=== PATIENT | male | born 1980 | race Caucasian/White ===

== ENCOUNTER 2017-01-27 05:37 | Inpatient (IN) | payer OTHER ==
[2017-01-27] VITALS (25 sets, daily range): BP systolic 70–115; BP diastolic 35–78; BMI 25.2
[~2017-01-27 05:37] MED LIST: BACTRIM DS TABL1 TAB PO; FLOMAX0.4 MG PO; ULTRAM50 MG PO; ZITHROMAX500 MG PO
[2017-01-27 06:33] LABS: BASOPHILS 0 % (0-2); EOSINOPHILS 0.3 % (0-7); HEMATOCRIT 36.1 % (42.0-54.0); LYMPHOCYTES 3.7 % (15-50); MCH 30.8 pg (26.0-34.0); MCHC 33.2 g/dL (31.0-37.0); MCV 92.8 fL (80.0-100.0); MEAN PLATELET VOLUME 9.9 fL (7.4-10.4); MONOCYTES 0 % (2-11); RBC 3.89 10x6/uL (4.20-6.10); RDW 13.2 % (11.5-14.5); WBC 3.5 10x3/uL (4.8-10.8)
[2017-01-27 06:39] LABS: PLATELET COUNT 116 10x3/uL (130-400)
[2017-01-27 06:51] LABS: ALBUMIN 3.1 g/dL (3.4-5.0); ANION GAP 12.1 mmol/L (8-16); BILIRUBIN - TOTAL 1.6 mg/dL (0.2-1.3); CALCIUM 8.7 mg/dL (8.5-10.1); CARBON DIOXIDE 23.5 mmol/L (21.0-32.0); CREATININE - SERUM 1.5 mg/dL (0.6-1.3); POTASSIUM - SERUM 3.6 mmol/L (3.5-5.1); PROTEIN - SERUM 5.9 g/dL (6.4-8.2)
[2017-01-27 07:22] LABS: APPEARANCE CLEAR (CLEAR); BACTERIA FEW /hpf (NONE SEEN); BILIRUBIN NEGATIVE (NEGATIVE); COLOR YELLOW (YELLOW); EPITHELIAL CELLS 0-5 /hpf (0-5); GLUCOSE NEGATIVE (NEGATIVE); KETONE NEGATIVE (NEGATIVE); MUCUS <1+ /lpf (NONE SEEN); NITRITE NEGATIVE (NEGATIVE); PROTEIN TRACE mg/dL (NEGATIVE); RED CELLS - URINE OCC /hpf (0-5); SPECIFIC GRAVITY 1.015 (1.005-1.020); UROBILINOGEN NORMAL (NORMAL); WHITE CELLS - URINE OCC /hpf (0-5)
[2017-01-27 07:23] LABS: GRANULAR CAST RARE /lpf (NONE SEEN)
[2017-01-27 10:03] LABS: UDS - AMPHET POSITIVE QUAL (NEGATIVE); UDS - BARB NEGATIVE QUAL (NEGATIVE); UDS - BENZO NEGATIVE QUAL (NEGATIVE); UDS - COCAINE NEGATIVE QUAL (NEGATIVE); UDS - OPIATE NEGATIVE QUAL (NEGATIVE); UDS - PCP NEGATIVE QUAL (NEGATIVE); UDS - THC NEGATIVE QUAL (NEGATIVE)
[2017-01-27 11:43] LABS: BASOPHILS 0.1 % (0-2); EOSINOPHILS 0.2 % (0-7); HEMATOCRIT 34.2 % (42.0-54.0); HEMOGLOBIN 11.5 g/dL (13.5-17.5); IMMATURE GRANULOCYTES 1.2 % (0-5); LYMPHOCYTES 2.6 % (15-50); MCH 31.3 pg (26.0-34.0); MCHC 33.6 g/dL (31.0-37.0); MCV 93.2 fL (80.0-100.0); MEAN PLATELET VOLUME 9.6 fL (7.4-10.4); MONOCYTES 3.4 % (2-11); NEUTROPHILS 92.5 % (40-80); PLATELET COUNT 95 10x3/uL (130-400); RBC 3.67 10x6/uL (4.20-6.10); RDW 13.4 % (11.5-14.5)
[2017-01-27 12:04] LABS: WBC 9.9 10x3/uL (4.8-10.8)
[2017-01-27 12:05] LABS: CKMB 0.4 U/L (0.0-3.6); CREATINE KINASE 80 UL (21-232); TROPONIN-I < 0.017 ng/mL (0.000-0.060)
--- NOTE | 2017-01-27 17:35 | NUR ---
DECREASED LEVOPHED TO 3MCG/MIN. PATIENT IS SLEEPING WITH NO DISTRESS NOTED. CALL LIGHT WITHIN REACH, BED IN LOW POSITION.
--- NOTE | 2017-01-27 17:45 | NUR ---
PATIENT DENIES ANY NEEDS AT THIS TIME. CM IS SR-ST. CALL LIGHT WIHTIN REACH, BED IN LOW POSITION.
--- NOTE | 2017-01-27 19:15 | NUR ---
ASSESSMENT COMPLETE. S1S2. SINUS TACHYCARDIA SHOWING ON MONITOR. RR EQUAL AND UNLABORED. BOWEL SOUNDS ACTIVE. COOL CATH IN PLACE; STAT LOCK APPLIED TO RT THIGH. RADIAL AND PEDAL PULSES PALPATED. SKIN FLUSHING NOTED TO FACE AND UPPER CHEST. MONITORING BP CLOSELY.
--- NOTE | 2017-01-27 19:39 | NUR ---
DECREASED LEVOPHED TO 4MCG/MIN DUE TO BP INCREASING TO 120'S SYSTOLIC. PATIENT IS SLEEPING WITH NO DISTRESS NOTED.
--- NOTE | 2017-01-27 20:00 | NUR ---
LEVOPHED OFF. BP WNL. WILL CONTINUE TO MONITOR. CLOSELY.
--- NOTE | 2017-01-27 20:50 | NUR ---
SPOKE WITH NUPUR HENDERSON FOR MORGAN. ORDERS RECEIVED. UPDATE GIVEN. PT C/O HEADACHE. SEE ORDERS FOR DETAILS.
--- NOTE | 2017-01-27 21:30 | NUR ---
FAMILY AT BEDSIDE. UPDATE GIVEN. QUESTIONS ANSWERED.
--- NOTE | 2017-01-27 23:15 | NUR ---
REASSESSMENT COMPLETE. NO ACUTE CHANGES FROM PREVIOUS ASSESSMENT. PT C/O HEADACHE. WILL CONTINUE TO MONTIOR. SEE EMAR FOR DETAILS.
[2017-01-28] VITALS (10 sets, daily range): BP systolic 88–140; BP diastolic 55–95; BMI 25.4
--- NOTE | 2017-01-28 01:35 | NUR ---
PT RESTING; EYES CLOSED. VSS. NO DISTRESS NOTED. WILL CONTINUE TO MONITOR.
--- NOTE | 2017-01-28 03:00 | NUR ---
REASSESSMENT COMPLETE. NO ACUTE CHANGES FROM PREVIOUS ASSESSMENT. VSS. NO DISTRESS NOTED. WILL CONTINUE TO MONITOR.
[2017-01-28 05:04] LABS: BASOPHILS 0.1 % (0-2); HEMATOCRIT 33.6 % (42.0-54.0); HEMOGLOBIN 11.2 g/dL (13.5-17.5); MCH 31.4 pg (26.0-34.0); MCHC 33.3 g/dL (31.0-37.0); MCV 94.1 fL (80.0-100.0); MEAN PLATELET VOLUME 10.7 fL (7.4-10.4); MONOCYTES 9.8 % (2-11); NEUTROPHILS 74.1 % (40-80); PLATELET COUNT 91 10x3/uL (130-400); RBC 3.57 10x6/uL (4.20-6.10); RDW 13.6 % (11.5-14.5)
[2017-01-28 05:05] LABS: WBC 14.6 10x3/uL (4.8-10.8)
[2017-01-28 05:38] LABS: ALBUMIN 2.5 g/dL (3.4-5.0); BILIRUBIN - TOTAL 0.9 mg/dL (0.2-1.3); CALCIUM 8.2 mg/dL (8.5-10.1); CARBON DIOXIDE 23.2 mmol/L (21.0-32.0); CREATININE - SERUM 1.2 mg/dL (0.6-1.3); PROTEIN - SERUM 5.3 g/dL (6.4-8.2)
[2017-01-28 05:39] LABS: POTASSIUM - SERUM 4.2 mmol/L (3.5-5.1)
--- NOTE | 2017-01-28 06:30 | NUR ---
FAMILY AT BEDSIDE. UPDATE GIVEN. QUESTIONS ANSWERED. PT REQUEST ROOM ON FLOOR SO THE FAMILY CAN STAY WITH PT.
--- NOTE | 2017-01-28 07:30 | NUR ---
PT INTUBATED WITH SEDATION TURNED OFF. PT HAS EYES OPEN. WRIST RESTRAINTS ON BOTH WRISTS. BP LOW. CURRENTLY GETTING A FLUID BOLUS. HEART RATE IS SYNUS TACHYCARDIC. RR 28 VENT SETTINGS AC R 16, TV 550, FIO2 60%, PEEP 5.0. ETT SIZE 7.5. REST OF ASSESMENT IN ASSSEMENT CHART. WILL CONTINUE OT MONITOR.
[2017-01-28 10:21] LABS: HEPATITIS C ANTIBODY <0.1 (0.0-0.9)
--- NOTE | 2017-01-28 10:28 | NUR ---
Is the patient Alert and Oriented? Yes 0 * How many steps to enter\exit or inside your home? 0 0 * PCP DOES NOT HAVE ONE 0 * Pharmacy [facility] [address] 0 * Preadmission Environment Fpc 0 * Facility Name [facility] 0 * ADLs Independent 0 * Equipment None 0 * List name and contact numbers for known caregivers / representatives who currently or will assist patient after discharge: FRIEND: SALLY GO [phone] 0 * Community resources currently utilized None 0 * Additional services required to return to the preadmission environment? No 0 * Can the patient safely return to the preadmission environment? Yes 0 * Has this patient been hospitalized within the prior 30 days at any hospital? No PATIENT STATES HE LIVES AT A CHEM FREE HOME WITH 3 ROOM MATES. HE PLANS TO RETURN THERE AT DISCHARGE. PATIENT STATES HIS GIRLFRIEND, SALLY GO [phone], WILL DRIVE HIM HOME AT DISCHARGE AND SHE WILL ASSIST HIM NEEDED AFTER DISCHARGE. PATIENT STATES THERE ARE NO STEPS TO ENTER THE HOME WHERE HE LIVES. PATIENT STATES HE IS INDEPENDENT IN ALL HIS ADL'S. HE DENIES HAVING HOME HEALTH OR USE OF ANY DME. PATIENT DENIES ANY DISCHARGE NEEDS AT THIS TIME.
--- NOTE | 2017-01-28 11:05 | NUR ---
PT S.LOCKED SO HE COULD GO FOR AN XRAY. COOL EMPTIED 1200ML OF URINE NOTED. PT WENT BY WHEELCHAIR TO XRAY.
--- NOTE | 2017-01-28 11:22 | NUR ---
PT BACK IN ROOM. SITTING IN CHAIR. HAS TRANSFER ORDERS PER DR. TEMPLETON.
--- NOTE | 2017-01-28 11:54 | NUR ---
PT RESTING COMFORTABLY ON HIS RIGHT SIDE. LUNCH TRAY BROUGHT IN. NS INFUSING AT 75ML/HR. DENIES OTHER NEEDS AT THIS TIME.
--- NOTE | 2017-01-28 15:26 | NUR ---
PT SIGNIFICANT OTHER IN ROOM FOR VISITATITON WHEN PT BEGAN YELLING TO GO OUTSIDE AND SMOKE, WHEN TOLD HE COULD NOT HE IS IN ICU HE THEN YELLED TO GO OUTSIDE AND THAT HE WANTED TO JUST LEAVE, WHEN CLARIFYING IF HE WAS GOING TO LEAVE AGAINST MEDICAL ADVISE HE SAID YES, DR MORA NOTIFIED, PIV TO RIGHT WRIST REMOVED, TIP INTACT, COOL REMOVED, GIVEN PAPER SCRUBS AND PT WALKED OUT OF ROOM AT 1526
--- NOTE | 2017-01-30 10:32 | NUR ---
CM RECEIVED CALL FROM KIRSTIE, PT'S INSURANCE PROVIDER WHO ASKED FOR DISCHARGE PLAN FOR PT. NICHOLAS PROVIDED ADMIT DATE AND DATE / EXPLANATION OF PT LEAVING AGAINST MEDICAL ADVICE. ANGIE WILL ATTEMPT TO CONTACT PT AT HOME TO FOLLOW UP WITH PT. LAW CABRERA,CASE MANAGEMENT
== END 2017-01-28 15:30 | disposition left against medical advice (07) | DRG 682 ==
LOC: D.ER 05:37 → D.ICU 12:07
PROVIDERS: Family Medicine; ADMIT Family Medicine
PROC: 0T9B70Z Drainage of Bladder with Drainage Device, Via Natural or Artificial Opening (ICD-10-PCS; principal; 2017-01-27)
DX: N17.9 Acute kidney failure, unspecified (principal); K72.00 Acute and subacute hepatic failure without coma; I95.9 Hypotension, unspecified; F15.10 Other stimulant abuse, uncomplicated; Z72.0 Tobacco use

== ENCOUNTER 2017-01-28 17:22 | Emergency (ER) | payer OTHER ==
[2017-01-28 09:53] VITALS: BMI 25.4
== END 2017-01-28 22:34 | disposition home or self-care (01) ==
LOC: D.ER 17:22
DX: R51 Headache (principal); F17.200 Nicotine dependence, unspecified, uncomplicated